=== PATIENT | female | born 1975 | race Caucasian/White ===

== ENCOUNTER 2016-10-14 15:33 | Emergency (ER) | payer SELFPAY ==
[2016-10-14] MEDS ORDERED: Sulfameth/Trimethoprim DS 800-160mg TAB ONE (16:16)
[2016-10-14] MEDS ORDERED: Ibuprofen 800 MG TAB ONE (16:16)
== END 2016-10-14 16:18 | disposition home or self-care (01) ==
LOC: MADERS 15:33
DX: L02.412 Cutaneous abscess of left axilla (principal); F17.210 Nicotine dependence, cigarettes, uncomplicated
CPT/HCPCS: 99283

== ENCOUNTER 2016-10-27 12:47 | Emergency (ER) | payer SELFPAY ==
[2016-10-27] MEDS ORDERED: HYDROcodone/Acetaminophen 10/325 mg Tablet ONE (13:36)
[2016-10-27] MEDS ORDERED: Naproxen 500 MG TAB ONE (13:37)
[2016-10-27] MEDS ORDERED: Sulfameth/Trimethoprim DS 800-160mg TAB ONE (13:37)
[2016-10-27] MEDS ORDERED: Cephalexin 500 MG CAP ONE (13:37)
== END 2016-10-27 13:40 | disposition home or self-care (01) ==
LOC: MADERS 12:47
DX: L02.411 Cutaneous abscess of right axilla (principal); F17.210 Nicotine dependence, cigarettes, uncomplicated
CPT/HCPCS: 99283

== ENCOUNTER 2017-10-05 11:32 | Emergency (ER) | payer MEDICAID, SELFPAY | END 2017-10-05 12:39 | disposition home or self-care (01) | LOC: MADERS 11:32 | DX: R23.8 Other skin changes (principal); T50.905A Adverse effect of unspecified drugs, medicaments and biological substances, initial encounter; E66.9 Obesity, unspecified; F17.210 Nicotine dependence, cigarettes, uncomplicated | CPT/HCPCS: 99283 ==

== ENCOUNTER 2018-03-15 13:50 | Emergency (ER) | payer MEDICAID ==
[2018-03-15 14:37] LABS: #Basophils 0.2 thou/uL (0.0-0.2); #Eosinphils 0.1 thou/uL (0.0-0.7); #Lymphocytes 2.8 thou/uL (1.20-3.40); #Monocytes 0.5 thou/uL (0.11-0.59); #Neutrophils 5.5 thou/uL (1.40-6.50); %Basophils 1.7 % (0.0-1.0); %Eosinophils 1.4 % (0.0-10.0); %Lymphocytes 30.9 % (21.0-51.0); %Monocytes 5.4 % (0.0-10.0); %Neutrophils 60.6 % (42.0-75.0); Hemoglobin 15.4 g/dL (12.0-16.0); Mean Corpuscular HGB CONC 34.3 g/dL (32.0-36.0); Mean Corpuscular Hemoglobin 33.2 pg (27.0-31.0); Mean Corpuscular Volume 96.9 fL (78.0-98.0); Mean Platelet Volume 6.7 fL (7.4-10.4); Platelet Count 289 thou/uL (130-400); RBC Distribution Width 11.5 % (11.5-14.5); Red Blood Cell (RBC) Count 4.63 mill/uL (4.20-5.40); White Blood Cell (WBC) Count 9.1 thou/uL (4.8-10.8)
[2018-03-15] MEDS ORDERED: Nitroglycerin 0.4 MG TAB (25 Tab Bottle) ONE (14:47)
[2018-03-15] MEDS ORDERED: Aspirin 325 MG TAB ONE (14:47)
[2018-03-15 14:57] LABS: ALT (SGPT) 17 U/L (8-55); AST (SGOT) 13 U/L (5-34); Albumin 3.7 g/dL (3.5-5.0); Alkaline Phosphatase 53 U/L (40-150); Anion Gap 13 mmol/L (10-20); BUN (Urea Nitrogen) 7 mg/dL (7.0-18.7); Bilirubin, Total 0.4 mg/dL (0.2-1.2); Calc. Creatinine Clearance 0 mL/min (70-130); Calcium 9.1 mg/dL (7.8-10.44); Carbon Dioxide 21 mmol/L (22-29); Chloride 110 mmol/L (98-107); Estimated GFR-MDRD 72; Globulin 2.9 g/dL (2.4-3.5); Glucose 132 mg/dL (70-105); Protein, Total 6.6 g/dL (6.0-8.3); Sodium 140 mmol/L (136-145)
[2018-03-15 14:58] LABS: Bilirubin Negative (Negative); Blood, Urine Large (Negative); Clarity Hazy (Clear); Glucose, Urine (Dipstick) Negative (Negative); Leukocyte Negative (Negative); Nitrite Negative (Negative); Protein, Urine (Dipstick) Negative (Neg-Trace); Specific Gravity, Urine 1.015 (1.005-1.030); Urobilinogen 0.2 mg/dL (0.2-1.0); pH, Urine 6.5 (5.0-9.0)
[2018-03-15 15:08] LABS: Bacteria/HPF Rare-Few HPF (None Seen); RBC/HPF 21-50 HPF (0-3); WBC/HPF 0-3 HPF (0-3)
--- NOTE | 2018-03-15 15:13 | RAD ---
TWO VIEWS CHEST: DATE: 03/15/18. PROVIDED CHISTI Chest pain. FINDINGS: Cardiac and mediastinal silhouette is within normal limits. Lungs appear clear. There is no pleural fluid or pneumothorax apparent. IMPRESSION: No evidence for an acute cardiopulmonary process. POS: [facility]
== END 2018-03-15 15:30 | disposition home or self-care (01) ==
LOC: MADERS 13:50
DX: R07.2 Precordial pain (principal); F17.210 Nicotine dependence, cigarettes, uncomplicated
CPT/HCPCS: 36415; 71046; 80053; 81003; 81015; 84484; 85025; 93005